=== PATIENT | female | born 1955 | race Asian ===

== ENCOUNTER 2025-03-18 17:06 | Emergency (ER) | payer MEDICARE ==
[~2025-03-18] VITALS: Ht 165.1 cm; Wt 68.0 kg
[2025-03-18 17:11] VITALS: O2SAT 98
[2025-03-18] MEDS ORDERED: ACETAMINOPHEN 500MG TABLET PO ONE (17:30)
[2025-03-18] MEDS ORDERED: IBUP-2030 MT (18:32)
[2025-03-18 19:47] VITALS: BP 137/76; PULSE 92; RESP 20; TEMP 36.7; O2SAT 99
== END 2025-03-18 19:50 | disposition home or self-care (01) ==
LOC: ER 17:06
DX: S00.83XA Contusion of other part of head, initial encounter (principal); E78.00 Pure hypercholesterolemia, unspecified; Z88.5 Allergy status to narcotic agent; W01.0XXA Fall on same level from slipping, tripping and stumbling without subsequent striking against object, initial encounter; Y93.89 Activity, other specified; Y92.89 Other specified places as the place of occurrence of the external cause; Y99.0 Civilian activity done for income or pay
CPT/HCPCS: 70486; 99284